=== PATIENT | female | born 1955 | race Caucasian/White ===

== ENCOUNTER → 2022-05-26 | Outpatient (CLI) | payer OTHER ==
[2022-05-26 12:44] LABS: HEMOGLOBIN A1C 6.3 % (4.0-6.0)
[2022-05-26 13:27] LABS: CHOLESTEROL 168 mg/dL (<200); HDL CHOLESTEROL 58 mg/dL (35-85); LDL DIRECT 89 mg/dL (0-99); TRIGLYCERIDES 168 mg/dL (30-200)
== END | disposition home or self-care (01) ==
LOC: LAB 10:28
PROVIDERS: ATTEND Student in an Organized Health Care Education/Training Program
DX: E78.5 Hyperlipidemia, unspecified (principal)
CPT/HCPCS: 36415; 80061; 83036